=== PATIENT | male | born 1970 | race Caucasian/White ===

== ENCOUNTER 2020-07-22 10:04 | Outpatient (CLI) | payer BC, SELFPAY ==
[2020-07-26 17:42] LABS: Patient Race White; SARS-CoV-2 RNA Undetected (Undetected); SARS-CoV-2 Specimen Source Nasal
== END 2020-07-22 10:24 ==
PROVIDERS: PCP Nurse Practitioner Family; Visit Provider Nurse Practitioner Family
DX: R05 Cough (principal)
CPT/HCPCS: U0003

== ENCOUNTER 2020-09-13 02:18 | Outpatient (CLI) | payer BC, SELFPAY ==
[2020-09-13 09:25] LABS: Hemoglobin A1C 5.4 % (<5.7)
[2020-09-13 10:03] LABS: Calculated LDL 58 mg/dL (<100); Cholesterol 159 mg/dL (<200); HDL Cholesterol 37 mg/dL (40-60); Triglyceride 321 mg/dL (<150)
== END 2020-09-13 02:38 ==
PROVIDERS: PCP Nurse Practitioner Family; Visit Provider Nurse Practitioner Family
DX: Z13.220 Encounter for screening for lipoid disorders (principal); Z13.1 Encounter for screening for diabetes mellitus
CPT/HCPCS: 36415; 80061; 83036

== ENCOUNTER 2021-08-11 06:52 | Emergency (ER) | payer BC, SELFPAY ==
[2021-08-11 06:58] VITALS: BP 148/78; PULSE 90; RESP 16; TEMP 36.7; O2SAT 95
--- NOTE | 2021-08-11 07:00 | ED.GENADUL_ITS ---
Discharge Plan Disposition Patient Disposition: HOME Condition: Stable Discharge Details Clinical Impression: Avulsion fracture of right wrist Primary Care Provider: Bob So ED Provider: Chan Tariq Home Meds and New Rx's Prescriptions: Continued amlodipine 10 mg tablet 10 mg PO DAILY Qty: 90 RF: 4 triamcinolone acetonide 0.1 % cream 1 applic topical BID Qty: 30 RF: 0 hydrochlorothiazide 12.5 mg tablet 12.5 mg PO DAILY Qty: 90 RF: 0 Discharge Instructions Additional Instructions: Leave wrist immobilized, but may remove for bathing We will place a referral to the orthopedic clinic today. Please call tomorrow for an appointment time. The office #[phone] Elevate above level of heart to reduce pain and swelling. Continue ibuprofen 600 to 800 mg every 8 hours, with food, as needed for pain. Return to the emergency room for any acute concerns. Medical Decision Making <Marco Wilkinson MD - Last Filed: 08/11/21 07:04> 50 yo male comes in with right wrist pain for a day. He states he was playing fetch with his dog yesterday using a [employer]ckit device repeatedly and had discomfort in his right wrist since. HE denies falls or other trauma. He localizes the pain to the ulnar surface of the wrist. He has no visible or palapable deformities. He has no pain in the hand or fingers, normal sensation, normal pulses, full range of motion of the hand and wrist. I suspect sprain vs tendonitis from the repetitive movement but will xray to evaluate for fracture Differential Diagnosis Differential Diagnosis: tendonitis, sprain, strain <Chan Tariq MD - Last Filed: 08/11/21 07:50> Received signout from Dr. Wilkinson. Please see his note for initial details of the case. There is question of avulsion fracture adjacent to the pisiform, at the point of patient's tenderness. Placed in immobilization with removable splint and will have him follow-up with orthopedics. Given instructions for home management. Stable for discharge at this time. HPI <Marco Wilkinson MD - Last Filed: 08/11/21 07:04> General Mode of arrival: ambulatory . Date/Time Provider Initiated Documentation: 08/11/21 06:53 . Limitations to Documentation: no limitations . Information obtained by: patient . History of Present Illness 50 year old M presents to the emergency department with the chief complaint of right wrist pain, described as moderate, Quality is described as aching, and is localized to the right and upper extremity. Patient reports no radiation. Patient started experiencing this day(s) (1) and it has been constant. Rest improves symptom(s), Movement worsens symptoms . Patient notes no other symptoms.. Patient did receive the following treatments prior to arrival, none Related Data Home Medications Medication Instructions Recorded Confirmed amlodipine 10 mg tablet 10 mg PO DAILY #90 tab 12/28/20 08/11/21 triamcinolone acetonide 0.1 % 1 applic TOPICAL BID #30 g 04/13/21 04/13/21 topical cream hydrochlorothiazide 12.5 mg tablet 12.5 mg PO DAILY #90 tab 05/03/21 08/11/21 Previous Rx's Medication Instructions Recorded amlodipine 10 mg tablet 10 mg PO DAILY #90 tab 12/28/20 triamcinolone acetonide 0.1 % 1 applic TOPICAL BID #30 g 04/13/21 topical cream hydrochlorothiazide 12.5 mg tablet 12.5 mg PO DAILY #90 tab 05/03/21 Allergies Allergy/AdvReac Type Severity Reaction Status Date / Time lisinopril Allergy Unknown Verified 08/11/21 07:01 pseudoephedrine Allergy Unknown Verified 08/11/21 07:01 environmental AdvReac Mild Uncoded 08/11/21 07:01 Review of Systems <Marco Wilkinson MD - Last Filed: 08/11/21 07:04> All systems reviewed & are unremarkable except as noted in HPI and below Constitutional Constitutional: Denies chills, Denies fever(s) and Denies weakness Cardiovascular Cardiovascular: Denies chest pain and Denies dyspnea Respiratory Respiratory: Denies cough and Denies dyspnea Gastrointestinal Gastrointestinal: Denies abdominal pain, Denies nausea and Denies vomiting Musculoskeletal Musculoskeletal: Denies joint swelling Neurologic Neurologic: Denies weakness [facility] <Marco Wilkinson MD - Last Filed: 08/11/21 07:04> Active Problem List (Updated 08/11/21 @ 07:49 by Chan Tariq MD) Avulsion fracture of right wrist (Acute) Rash (Acute) Skin lesion (Acute) Right inguinal pain (Acute) GERD (gastroesophageal reflux disease) (Chronic) Diabetes mellitus screening (Acute) Screening cholesterol level (Acute) Adenomatous polyp (Acute ~2014) Chronic allergic conjunctivitis (Acute) Contact dermatitis (Acute) Essential hypertension (Acute) Right lower quadrant pain (Chronic) Pure hyperglyceridemia (Acute) Umbilical hernia (Acute) Medical History (Updated 08/11/21 @ 07:49 by Chan Tariq MD) Plantar nerve lesion Shoulder joint pain Sprain of knee/leg Family History (Updated 07/14/20 @ 14:24 by Carlos Moyer) Mother Asthma Breast cancer Hypertension Father Heart disease Hypertension Stroke Sister Hypertension Maternal Grandfather , age 46 Alcohol abuse Heart disease Paternal Grandfather , age 82 COPD (chronic obstructive pulmonary disease) Heart disease Hypertension Maternal Grandmother , age 85 Heart disease Hyperlipidemia Hypertension Paternal Grandmother , age 72 Hypertension Ovarian cancer Social History (Updated 07/14/20 @ 14:21 by Carlos Moyer) Smoking/Tobacco Use Status: Former Tobacco Use Quit Date: 09/23/14 Smokeless tobacco user: chewing tobacco and snuff Quit status: has quit before Second Hand Exposure: No Smoking risk assessment performed?: Yes Alcohol Intake: current Alcohol Intake frequency: a few times a month Drug use: Never Caregiver/Support person: No Household members: spouse and children Housing: house Communication Needs: None Do you need help understanding health information?: Never Pets and animals: Yes Pets and animals: dog(s) Sexually active: Yes Do you think of yourself as: straight/heterosexual Current gender identity: male What is your relationship status?: How often do you talk on the phone with friends or family?: never How often do you get together with friends or relatives?: never How often do you attend mandaeism or baptism services?: 1-3 times per year Do you belong to any clubs or organized social groups?: yes Panel score (0-1 are the most socially isolated patients): 2 What type of physical activity do you participate in: walking Duration: < 15 minutes/day Frequency: 3-4 times per week Rakel/Temple: Uatsdin Special rakel needs: No Seatbelt use: always Helmet use: Yes Helmet use: always Drive intox or ride w/intox courtesy van driver: No Do you feel safe at home: Yes Do you feel safe in your relationship?: No Victim of physical abuse: No Victim of emotional abuse: No Victim of sexual abuse: No Would you like helpful sources: No Exam <Marco Wilkinson MD - Last Filed: 08/11/21 07:04> Const General: no acute distress Orientation: alert HENMT Head: normal to inspection Ears: external ears normal General nose exam: external nose normal Mouth: moist mucous membranes Eyes General: appearance normal, both eyes and all related structures Neck Neck: normal visual inspection Resp Effort & Inspection: normal respiratory effort and able to speak in complete sentences Cardio Rate: regular rate Skin General skin exam: no rashes or lesions noted Neuro General: patient alert and patient oriented x3 Extrem General: normal to inspection Psych Mental Status: mental status grossly normal Sign Out <Marco Wilkinson MD - Last Filed: 08/11/21 07:04> Sign Out Data: Sign Out Comment: right wrist pain after playing fetch with dog yesterday and using chuckit, no falls, xray pending. If negative treat as sprain Last updated by Marco Wilkinson MD at 08/11/21 07:06
[2021-08-11] MEDS: Ibuprofen 600 MG TAB PO (07:07)
--- NOTE | 2021-08-11 07:16 | DI.RAD_ITS ---
Exam(s) XR WRIST RT COMPLETE EXAM: XR WRIST RT COMPLETE CLINICAL HISTORY: pain ulnar surface. TECHNIQUE: 2D digital imaging was performed. COMPARISON: No exams were available for comparison FINDINGS: BONES: There is a small bony density seen adjacent to the pisiform which could represent a fracture f ragment. No additional fracture suspected. No bony destructive lesion is seen. JOINTS: The carpal bones are normally aligned. SOFT TISSUE: Mild swelling. IMPRESSION: Fracture fragment adjacent to the pisiform. DATA REPOSITORY: RADIATION DOSE DELIVERED:
--- NOTE | 2021-08-11 07:39 | DI.VRAD_ITS ---
PROCEDURE INFORMATION: Exam: XR Right Wrist Exam date and time: 08/11/2021 7:00 AM Age: 50 years old Clinical indication: Wrist; Right; Patient HX: Pain ulnar surface TECHNIQUE: Imaging protocol: XR Right wrist. Views: 3 or more views. COMPARISON: No relevant prior studies available. FINDINGS: Bones/joints: Suspect small cortical avulsion volar wrist adjacent to the pisiform. Overlying soft tissue swelling. Minimal deformity ulnar styloid process without discrete displaced fracture. No other acute fracture or dislocation. 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 No erosions. No lytic or blastic lesions. Soft tissues: Soft tissue swelling ulnar/volar aspect of the wrist IMPRESSION: 1. Suspect small cortical avulsion volar wrist adjacent to the pisiform. Overlying soft tissue swelling. 2. No other acute fracture or dislocation Dictated and Authenticated by: Richmond Alfaro MD. Ordering:ALEXSANDRA Lara MD
== END 2021-08-11 07:58 | disposition home or self-care (01) ==
PROVIDERS: Emergency Provider Emergency Medicine; PCP Nurse Practitioner Family
DX: S62.101A Fracture of unspecified carpal bone, right wrist, initial encounter for closed fracture (principal); X50.3XXA Overexertion from repetitive movements, initial encounter
CPT/HCPCS: 29125; 99283; 73110

== ENCOUNTER 2021-09-17 12:09 | Emergency (ER) | payer BC, SELFPAY ==
[2021-09-17 12:20] VITALS: BP 133/92; PULSE 98; RESP 20; TEMP 36.9; O2SAT 98
[2021-09-17 12:22] VITALS: BP 133/92; PULSE 82; O2SAT 99
[2021-09-17 12:23] VITALS: O2SAT 99
--- NOTE | 2021-09-17 12:30 | DI.CT_ITS ---
Exam(s) CT CHEST/ABD/PEL W EXAM: CT CHEST/ABD/PEL W CLINICAL HISTORY: Ski trauma - Pain LUQ and Ribs. TECHNIQUE: Imaging Protocol: Axial computed tomography images with coronal and sagittal reformatted images were created and reviewed CONTRAST MATERIAL: Intravenous: Omnipaque 350 Contrast volume:100 ml Oral: None COMPARISON: No exams were available for comparison FINDINGS: CHEST: LUNGS: No evidence of lung contusion or pleural effusion. No pneumothorax. No incidental nodules. No infiltrates. No focal findings in the trachea and mainstem bronchi.. MEDIASTINUM: No evidence of mediastinal hematoma. No incidental adenopathy. Visualized thyroid unre markable. CARDIAC: Heart size is normal. There is no pericardial effusion.Caliber of the thoracic aorta is wit hin normal limits. OSSEOUS: No fractures. No significant osseous lesions.. ABDOMEN: There is no ascites. LIVER: There are no focal hepatic lesions nor dilatation of intrahepatic ducts. No evidence of hepat ic laceration. GALLBLADDER/BILIARY: No obvious gallbladder pathology. CBD is not dilated. PANCREAS: No evidence of pancreatic mass nor dilatation of the pancreatic duct. SPLEEN: Spleen size normal. No splenic laceration evident. No perisplenic fluid. Splenic and oscar l veins are patent. ADRENALS: There are no significant adrenal masses. KIDNEYS: No hepatic laceration or subcapsular hematoma. No focal findings in the right kidney. Tiny cyst noted in the left kidney measuring approximately 5 millimeters.. No solid renal masses no hydr onephrosis. ABDOMINAL AORTA: Intact. No laceration. No aneurysm. No periaortic fluid. LYMPH NODES: There is no retroperitoneal nor paraaortic adenopathy. ABDOMINAL WALL: Small fat containing umbilical hernia. There are bilateral fat containing inguinal h ernias. GI: There is no evidence of bowel obstruction.No evidence of bowel wall hematoma nor mesenteric hemat vivian. PELVIS: LYMPH NODES: There is no intrapelvic nor inguinal adenopathy. GI: No evidence of appendicitis.No evidence of sigmoid diverticulitis. URINARY BLADDER: No distension. No extravasation. No focal findings. REPRODUCTIVE: Prostate unremarkable. Seminal vesicles unremarkable. No free fluid in the pelvis OSSEOUS: No obvious fractures. No significant osseous lesions. IMPRESSION: 1. No evidence of significant trauma sequelae in the chest. No incidental intrathoracic findings 2. No significant trauma sequelae in the abdomen and pelvis. Study 1st read by [facility]. RADIATION DOSE DELIVERED: 1,345.92mGy.cm Total DLP DATA REPOSITORY: All CT scans at this facility are submitted to the National Radiology Data Registry (NRDR) Dose Index Registry (DIR) with the [employer] (ACR). RADIATION OPTIMIZATION: All CT scans at this facility use at least one of these dose optimization te chniques: automated exposure control; mA and/or kV adjustment per patient size (includes targeted exa ms where dose is matched to clinical indication); or iterative reconstruction.
[2021-09-17 12:45] LABS: Abs Immature Grans 0.03 10^3/uL (0.0-0.06); Absolute Basophil Count 0.03 10^3/uL (0.0-0.2); Absolute Eosinophil Count 0.12 10^3/uL (0.0-0.7); Absolute Lymphocyte Count 0.86 10^3/uL (1.2-3.4); Absolute Monocyte Count 0.52 10^3/uL (0.1-0.8); Absolute Neutrophil Count 7.74 10^3/uL (1.2-6.7); Basophils % 0.3; Eosinophils % 1.3; HCT 43.8 % (40.0-50.0); Immature Grans % 0.3; Lymphocytes % 9.2; MCH 29.6 pg (27.0-33.0); MCHC 34.2 % (32.0-36.0); MCV 86.6 fL (80-95); MPV 9.2 fL (8.0-11.0); Monocytes % 5.6; Neutrophils % 83.3; Nucleated RBC 0 %; Platelet Count 184 10^3/uL (130-400); RBC 5.06 10^6/uL (4.36-5.78); RDW-SD 40.4 fL
[2021-09-17] MEDS: Ketorolac 15 MG/ML VIAL IVP (12:46)
[2021-09-17 12:58] LABS: ALT 164 U/L (16-63); AST 65 U/L (15-37); Alkaline Phosphatase 84 U/L (46-116); Anion Gap 8.3 mmol/L (3-11); BUN 20 mg/dL (7-18); Bilirubin, Total 0.5 mg/dL (0.2-1.0); CO2 25.7 mmol/L (21.0-32.0); CREATININE 1.1 mg/dL (0.70-1.30); Calcium 8.9 mg/dL (8.5-10.1); Chloride 103 mmol/L (98-107); Glucose 119 mg/dL (74-106); Potassium 3.5 mmol/L (3.5-5.1); Sodium 137 mmol/L (136-145); Total Protein 7.4 g/dL (6.4-8.2)
[2021-09-17] MEDS: Omnipaque 350 MG/ML 100 ML BTL IJ (13:01)
[2021-09-17] MEDS: Normal Saline Flush 10 ML SYR IVP (13:02)
--- NOTE | 2021-09-17 13:11 | ED.GENADUL_ITS ---
Discharge Plan Disposition Patient Disposition: HOME Condition: Stable Discharge Details Clinical Impression: Acute traumatic injury of chest wall Primary Care Provider: Bob So ED Provider: Jorge Moe Home Meds and New Rx's Prescriptions: New cyclobenzaprine 5 mg tablet 5 mg PO TID PRN (Reason: muscle spasm) Qty: 14 RF: 0 Continued amlodipine 10 mg tablet 10 mg PO DAILY Qty: 90 RF: 4 triamcinolone acetonide 0.1 % cream 1 applic topical BID Qty: 30 RF: 0 losartan 100 mg tablet 100 mg PO DAILY RF: 0 hydrochlorothiazide 12.5 mg tablet 12.5 mg PO DAILY Qty: 90 RF: 0 Discharge Instructions Instructions: Chest Wall Pain (ED) Additional Instructions: If you develop fever chills, productive cough, or any significant worsening of your symptoms please return immediately to the emergency department for reassessment. Otherwise you may take gkli-qyw-sdqviiz pain medication as discussed for pain control and use topical lidocaine cream or patches if this is beneficial. If you are not showing signs of improvement in the next 1 to 2 weeks please follow-up with your primary care provider for consideration of repeat imaging as needed. Medical Decision Making Patient presenting to the emergency department for chief complaint of left-sided rib and upper abdominal pain after falling while skiing. Patient states he was helmeted and denies any head injury, loss of consciousness, back pain. Physical exam shows significantly tender left mid axillary ribs 6 through 8, left upper quadrant pain, otherwise patient has benign exam with no C-spine tenderness, full range of motion of neck, no thoracic or lumbar tenderness to palpation. Abdomen is soft with no bloating and normal active bowel sounds. Review of labs is unremarkable for any emergent findings but of notation is slightly elevated AST and ALT which patient states that he has planned follow-up with primary care provider discussed this and his elevated blood pressure. Review of CT imaging shows no acute rib fracture, no pneumo or hemothorax, no hematoma or abdominal findings. Radiologist does note a transverse process fracture of L4 which patient was reassessed and has no tenderness to palpation of the lumbar spine so at this time I feel this is an over read and I do not think patient has spinal fracture. Patient did report improvement after receiv ing Toradol and lidocaine patch but reported some muscular spasms to chest wall. Due to this patient was prescribed muscle relaxers but then discussed [id number]-[id number] pain management therapy which patient is agreeable to. Follow- up and return precautions were also discussed. After discussion of diagnosis and plan of care patient has no further needs, questions, or concerns and states clear understanding to return to the emergency department for any worsening symptoms. HPI General Mode of arrival: ambulatory . Date/Time Provider Initiated Documentation: 09/17/21 12:10 . Limitations to Documentation: no limitations . Information obtained by: patient . History of Present Illness 50 year old M presents to the emergency department with the chief complaint of Left rib and abd pain after ski fall, described as moderate, with intensity rated at 6. Quality is described as aching and sharp, and is localized to the chest, abdomen and left. Patient reports no radiation. Patient started experiencing this hour(s) (1) and it has been constant. Immobilization improves symptom(s), Movement worsens symptoms . Patient notes no other symptoms.. Patient did receive the following treatments prior to arrival, none Related Data Home Medications Medication Instructions Recorded Confirmed amlodipine 10 mg tablet 10 mg PO DAILY #90 tab 12/28/20 09/17/21 triamcinolone acetonide 0.1 % 1 applic TOPICAL BID #30 g 04/13/21 09/17/21 topical cream hydrochlorothiazide 12.5 mg tablet 12.5 mg PO DAILY #90 tab 05/03/21 09/17/21 losartan 100 mg tablet 100 mg PO DAILY 09/04/21 09/17/21 cyclobenzaprine 5 mg PO TID PRN #14 tab 09/17/21 Previous Rx's Medication Instructions Recorded amlodipine 10 mg tablet 10 mg PO DAILY #90 tab 12/28/20 triamcinolone acetonide 0.1 % 1 applic TOPICAL BID #30 g 04/13/21 topical cream hydrochlorothiazide 12.5 mg tablet 12.5 mg PO DAILY #90 tab 05/03/21 cyclobenzaprine 5 mg PO TID PRN #14 tab 09/17/21 Allergies Allergy/AdvReac Type Severity Reaction Status Date / Time lisinopril Allergy Unknown Verified 09/17/21 12:24 pseudoephedrine Allergy Unknown Verified 09/17/21 12:24 environmental AdvReac Mild Uncoded 09/17/21 12:24 General Stated Complaint: Trauma BUNNY: 2 Review of Systems ENT Ears, Nose, Mouth, and Throat: Denies neck pain Cardiovascular Cardiovascular: Denies syncope and Denies dyspnea Respiratory Respiratory: Denies cough and Denies dyspnea Gastrointestinal Gastrointestinal: Reports abdominal pain, Denies bloating, Denies nausea, Denies vomiting and Denies hematemesis Musculoskeletal Musculoskeletal: Reports as per HPI, Denies back pain, Denies neck pain, Denies numbness and Denies tingling Integumentary/Breasts Skin/Breast: Denies rash, Denies sores and Denies wounds Neurologic Neurologic: Denies syncope, Denies numbness and Denies tingling PFSH All Active Problems (Updated 09/17/21 @ 14:12 by Jorge Moe NP) Acute traumatic injury of chest wall (Acute) Avulsion fracture of right wrist (Acute 08/10/21) Rash (Acute) Skin lesion (Acute) Right inguinal pain (Acute) GERD (gastroesophageal reflux disease) (Chronic) Diabetes mellitus screening (Acute) Screening cholesterol level (Acute) Adenomatous polyp (Acute ~2013) Chronic allergic conjunctivitis (Acute) Contact dermatitis (Acute) Essential hypertension (Acute) Right lower quadrant pain (Chronic) Pure hyperglyceridemia (Acute) Umbilical hernia (Acute) Medical History Plantar nerve lesion Shoulder joint pain Sprain of knee/leg Family History Mother Asthma Breast cancer Hypertension Father Heart disease Hypertension Stroke Sister Hypertension Maternal Grandfather , age 46 Alcohol abuse Heart disease Paternal Grandfather , age 82 COPD (chronic obstructive pulmonary disease) Heart disease Hypertension Maternal Grandmother , age 85 Heart disease Hyperlipidemia Hypertension Paternal Grandmother , age 72 Hypertension Ovarian cancer Social History Smoking/Tobacco Use Status: Former Tobacco Use Quit Date: 09/23/14 Smokeless tobacco user: chewing tobacco and snuff Quit status: has quit before Second Hand Exposure: No Smoking risk assessment performed?: Yes Alcohol Intake: current Alcohol Intake frequency: a few times a month Drug use: Never Substance use type: does not use Caregiver/Support person: No Household members: spouse and children Housing: house Communication Needs: None Do you need help understanding health information?: Never Pets and animals: Yes Pets and animals: dog(s) Sexually active: Yes Do you think of yourself as: straight/heterosexual Current gender identity: male What is your relationship status?: How often do you talk on the phone with friends or family?: never How often do you get together with friends or relatives?: never How often do you attend jewish or bahai services?: 1-3 times per year Do you belong to any clubs or organized social groups?: yes Panel score (0-1 are the most socially isolated patients): 2 What type of physical activity do you participate in: walking Duration: < 15 minutes/day Frequency: 3-4 times per week Rakel/Jehovah'S Witness: Cheondoism Special rakel needs: No Seatbelt use: always Helmet use: Yes Helmet use: always Drive intox or ride w/intox school bus driver/mechanic: No Do you feel safe at home: Yes Do you feel safe in your relationship?: No Victim of physical abuse: No Victim of emotional abuse: No Victim of sexual abuse: No Would you like helpful sources: No Exam Const General: cooperative Orientation: alert, awake and oriented x3 Chest Chest: normal inspection of the chest, no crepitus, localized rib tenderness with anteroposterior compression (6-8 lateral left ribs), tenderness rib (Lateral L 6-8) and No rash Resp Effort & Inspection: normal respiratory effort and able to speak in complete sentences Auscultation: clear to auscultation bilaterally Cardio Rate: regular rate Rhythm: regular rhythm Heart Sounds: S1 normal and S2 normal GI Palpation: soft, no hepatosplenomegaly, not firm, no guarding, no masses, no pulsatile masses, not rigid, no splenomegaly and tender in the LUQ Auscultation: normal bowel sounds Back/Spine/Pelvis Back: no CVA tenderness Cervical Spine: normal cervical lordosis, cervical ROM normal and No cervical spinal tenderness Thoracic/Lumbar Spine: thoracic and lumbar spine normal to inspection, No thoracic spinal tenderness and No lumbar spinal tenderness Neuro General: patient alert, patient awake, patient oriented x3, gait normal and moves all extremities Course Vital Signs Vital signs: Vital Signs Temperature 36.9 C 09/17/21 12:20 Pulse 98 H 09/17/21 12:20 Respiratory Rate 20 09/17/21 12:20 Blood Pressure 133/92 H 09/17/21 12:20 Pulse Oximetry 98 09/17/21 12:20 Temperature 36.9 C 09/17/21 12:20 Temperature Source Temporal Artery Scan 09/17/21 12:20 Pulse 82 09/17/21 12:22 Respiratory Rate 20 09/17/21 12:20 Respiratory Effort Non-Labored 09/17/21 12:47 Respiratory Depth Normal 09/17/21 12:47 Respiratory Pattern Normal 09/17/21 12:47 Blood Pressure 133/92 H 09/17/21 12:22 Blood Pressure Mean 104 09/17/21 12:22 Blood Pressure Position Supine 09/17/21 12:20 Pulse Oximetry 99 09/17/21 12:23 Oxygen Delivery Method Room Air 09/17/21 12:20 Oxygen Flow Rate 0 09/17/21 12:20 Pain Level 4 09/17/21 12:20 Lab/Test Results Lab/Test Results: Laboratory Tests Range/Units 09/17/21 12:40 WBC (4.4-10.8) 10^3/uL 9.30 RBC (4.36-5.78) 10^6/uL 5.06 Hgb (13.5-17.5) g/dL 15.0 Hct (40.0-50.0) % 43.8 MCV (80-95) fL 86.6 MCH (27.0-33.0) pg 29.6 MCHC (32.0-36.0) % 34.2 RDW (11.8-14.1) % 13.0 Plt Count (130-400) 10^3/uL 184 MPV (8.0-11.0) fL 9.2 Immature Gran % 0.3 Neutrophils % 83.3 Lymphocytes % 9.2 Monocytes % 5.6 Eosinophils % 1.3 Basophils % 0.3 Nucleated RBC % % 0 Absolute Neutrophils (1.2-6.7) 10^3/uL 7.74 H Absolute Lymphocytes (1.2-3.4) 10^3/uL 0.86 L Absolute Monocytes (0.1-0.8) 10^3/uL 0.52 Absolute Eosinophils (0.0-0.7) 10^3/uL 0.12 Absolute Basophils (0.0-0.2) 10^3/uL 0.03 PAWSS Have you Been Recently Intoxicated or Drunk Within the Last 30 days?: No Have you Ever Experienced Previous Episodes of Alcohol Withdrawal?: No Have you ever Experienced Withdrawal Seizures?: No Have you ever Experienced Delirium Tremens(DT)s?: No Have you ever undergone Alcohol Rehabilitation Treatment (i.e, inpt ot outpatient treatment programs)?: No Have you ever Experienced Blackouts?: No Have you ever Combined Alcohol with other Downers within the last 90 days?: No Have you ever Combined Alcohol with any other Substance of Abuse during the last 90 days?: No Positive Blood Alcohol level on Presentation? [PCS.BAL]: No Evidence of Increased Autonomic Activity (i.e. HR>120, tremor, sweating, agitation, nausea)?: No Result: 0
[2021-09-17] MEDS: Lidocaine 5% Patch 1 PATCH TP (13:33)
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
[2021-09-17 14:32] VITALS: BP 142/76; PULSE 92; RESP 18; O2SAT 98
== END 2021-09-17 14:33 | disposition home or self-care (01) ==
PROVIDERS: Emergency Provider Nurse Practitioner Family; PCP Nurse Practitioner Family
DX: S29.8XXA Other specified injuries of thorax, initial encounter (principal); R10.12 Left upper quadrant pain; V00.321A Fall from snow-skis, initial encounter; I10 Essential (primary) hypertension; R79.89 Other specified abnormal findings of blood chemistry
CPT/HCPCS: 36415; 74177; 80053; 96374; 99285; 71260; 85025; 99284; J1885; J3490

== ENCOUNTER 2021-10-17 03:11 | Outpatient (CLI) | payer BC, SELFPAY ==
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
== END 2021-10-17 03:31 ==
PROVIDERS: PCP Nurse Practitioner Family; Visit Provider Nurse Practitioner Family
DX: R07.81 Pleurodynia (principal); S20.212D Contusion of left front wall of thorax, subsequent encounter; V00.321D Fall from snow-skis, subsequent encounter
CPT/HCPCS: 71046; 71100

== ENCOUNTER 2021-12-07 03:55 | Outpatient (CLI) | payer BC, SELFPAY ==
[2021-12-07 12:44] LABS: HCT 43.7 % (40.0-50.0); HGB 14.8 g/dL (13.5-17.5); MCH 29.5 pg (27.0-33.0); MCHC 33.9 % (32.0-36.0); MCV 87.2 fL (80-95); MPV 9.9 fL (8.0-11.0); Platelet Count 153 10^3/uL (130-400); RBC 5.01 10^6/uL (4.36-5.78); WBC 7.13 10^3/uL (4.4-10.8)
[2021-12-07 13:54] LABS: AST 606 U/L (15-37); Albumin 3.6 g/dL (3.4-5.0); Alkaline Phosphatase 158 U/L (46-116); Anion Gap 7.3 mmol/L (3-11); BUN 25 mg/dL (7-18); Bilirubin, Total 3.5 mg/dL (0.2-1.0); CO2 27.7 mmol/L (21.0-32.0); CREATININE 1.7 mg/dL (0.70-1.30); Calcium 8.7 mg/dL (8.5-10.1); Chloride 108 mmol/L (98-107); Estimated GFR 42.88 (mL/min/1.73m2); Glucose 94 mg/dL (74-106); Potassium 3.6 mmol/L (3.5-5.1); Sodium 143 mmol/L (136-145); TSH 0.73 uIU/mL (0.36-3.74); Total Protein 6.8 g/dL (6.4-8.2)
[2021-12-07 14:59] LABS: ALT 1505 U/L (16-63)
[2021-12-07 19:18] LABS: Lab Add On Test DONE
[2021-12-07 19:48] LABS: Lipase 146 U/L (73-393)
[2021-12-07 20:15] LABS: Ferritin 503 ng/mL (26-388)
== END 2021-12-07 03:56 | disposition home or self-care (01) ==
LOC: LBO 03:55
PROVIDERS: PCP Nurse Practitioner Family; Visit Provider Nurse Practitioner Family
DX: I10 Essential (primary) hypertension (principal); R53.83 Other fatigue; R42 Dizziness and giddiness; K21.9 Gastro-esophageal reflux disease without esophagitis
CPT/HCPCS: 36415; 80053; 83690; 85027; 82728; 84443

== ENCOUNTER 2021-12-08 20:56 | Outpatient (CLI) | payer BC, SELFPAY ==
--- NOTE | 2021-12-08 11:15 | DI.CT_ITS ---
Exam(s) CT ABDOMEN W EXAM: CT ABDOMEN W CLINICAL HISTORY: Significant elevation in liver enzymes, acute viral hepatitis TECHNIQUE: COMPARISON: CT CT CHEST/ABD/PEL W from 09/17/2021 FINDINGS: CT examination of the upper abdomen was performed utilizing arterial and venous phase imaging with in travenous infusion of 100 cc of Omnipaque 350. Images obtained through the lung bases are unremarkable. There is a small pericholecystic fluid collection. Gallbladder is contracted. No biliary dilatation . Pancreas appears normal. Hepatic parenchyma is heterogeneous in attenuation. There is a nodular contour of the liver. The fi ndings are consistent with cirrhosis and hepatic steatosis. Spleen is mildly enlarged. No gross upp er abdominal venous collateral circulation identified. Normal opacification of portal vein. No adenopathy in the upper abdomen. Adrenals and kidneys appear normal. Abdominal aorta and major v isceral branches visualized appear intact. No focal bowel pathology. Normal appendix. IMPRESSION: The appearance is consistent with hepatic cirrhosis and probable hepatic steatosis. No focal hepatic lesion identified. No evidence of biliary tract obstruction. RADIATION DOSE DELIVERED: 1,024.32mGy.cm Total DLP !Error CTDIvol RADIATION OPTIMIZATION: All CT scans at this facility use at least one of these dose optimization te chniques: automated exposure control; mA and/or kV adjustment per patient size (includes targeted exa ms where dose is matched to clinical indication); or iterative reconstruction.
[2021-12-08] MEDS: Omnipaque 350 MG/ML 50 ML BTL IJ (15:13)
[2021-12-08] MEDS: Breeza Beverage 473 ML BTL PO (15:13)
[2021-12-08] MEDS: Omnipaque 350 MG/ML 100 ML BTL IJ (16:12)
[2021-12-08] MEDS: Normal Saline Flush 10 ML SYR IVP (16:13)
[2021-12-11 10:55] LABS: Hepatitis A Antibody IgM Negative (Negative); Hepatitis B Core Antibody Negative (Negative); Hepatitis B surface Ag Negative (Negative); Hepatitis C Ab w Rflx HCV PCR Negative (Negative)
== END 2021-12-08 21:16 ==
PROVIDERS: PCP Nurse Practitioner Family; Visit Provider Nurse Practitioner Family
DX: B17.9 Acute viral hepatitis, unspecified (principal); K74.60 Unspecified cirrhosis of liver
CPT/HCPCS: 86704; 86709; 86803; 87340; 74160; J3490; Q9967

== ENCOUNTER 2021-12-12 02:40 | Outpatient (CLI) | payer BC, SELFPAY ==
[2021-12-12 11:11] LABS: INR 1.3 (0.9-1.1); Prothrombin Time 12.6 sec (9.3-11.0)
[2021-12-12 12:08] LABS: AST 451 U/L (15-37); Albumin 3.4 g/dL (3.4-5.0); Alkaline Phosphatase 172 U/L (46-116); Anion Gap 7.2 mmol/L (3-11); BUN 18 mg/dL (7-18); Bilirubin, Total 2.7 mg/dL (0.2-1.0); CO2 27.8 mmol/L (21.0-32.0); CREATININE 1.5 mg/dL (0.70-1.30); Calcium 8.9 mg/dL (8.5-10.1); Chloride 103 mmol/L (98-107); Estimated GFR 49.54 (mL/min/1.73m2); Glucose 96 mg/dL (74-106); Potassium 3.5 mmol/L (3.5-5.1); Sodium 138 mmol/L (136-145); Total Protein 6.9 g/dL (6.4-8.2)
[2021-12-12 12:09] LABS: Ferritin > 2000 ng/mL (26-388)
[2021-12-12 12:20] LABS: ALT 1093 U/L (16-63)
[2021-12-12 12:53] LABS: Lab Add On Test DONE
[2021-12-13 09:10] LABS: Hepatitis C Ab w Rflx HCV PCR Negative (Negative)
[2021-12-13 11:27] LABS: Lyme Ab w Rflx to Lyme Confirm Negative (Negative)
[2021-12-13 11:28] LABS: CMV IgG Antibody Negative (See Note)
[2021-12-13 14:15] LABS: ANA Interpretation Positive (Negative); ANA Titer Pattern 1:80 Speckled
[2021-12-14 16:10] LABS: HBV DNA Detect/Quant, PCR Undetected IU/mL (Undetected)
[2021-12-14 16:15] LABS: Smooth Muscle Ab Screen Negative (Negative)
[2021-12-15 23:19] LABS: Anaplasma phagocytophilum Negative (Negative); B. miyamotoi PCR Negative (Negative); Babesia divergens/MO-1 Negative (Negative); Babesia duncani Negative (Negative); Babesia microti Negative (Negative); Ehrlichia chaffeensis Negative (Negative); Ehrlichia ewingii/canis Negative (Negative); Ehrlichia muris eauclairensis Negative (Negative)
== END 2021-12-12 02:41 | disposition home or self-care (01) ==
LOC: LBO 02:41
PROVIDERS: PCP Nurse Practitioner Family; Visit Provider Nurse Practitioner Family
DX: R53.83 Other fatigue (principal); R74.8 Abnormal levels of other serum enzymes; B17.9 Acute viral hepatitis, unspecified
CPT/HCPCS: 36415; 80053; 86803; 87517; 87798; 82728; 85610; 86038; 86255; 86618; 86644

== ENCOUNTER 2021-12-18 03:39 | Outpatient (CLI) | payer BC, SELFPAY ==
[2021-12-18 14:25] LABS: INR 1.3 (0.9-1.1); Prothrombin Time 12.7 sec (9.3-11.0)
[2021-12-18 15:31] LABS: ALT 916 U/L (16-63); AST 445 U/L (15-37); Albumin 3.5 g/dL (3.4-5.0); Alkaline Phosphatase 170 U/L (46-116); Anion Gap 10.2 mmol/L (3-11); BUN 17 mg/dL (7-18); Bilirubin, Total 2.3 mg/dL (0.2-1.0); CO2 24.8 mmol/L (21.0-32.0); CREATININE 1.3 mg/dL (0.70-1.30); Calcium 8.8 mg/dL (8.5-10.1); Chloride 105 mmol/L (98-107); Estimated GFR 58.43 (mL/min/1.73m2); Glucose 93 mg/dL (74-106); Potassium 3.6 mmol/L (3.5-5.1); Sodium 140 mmol/L (136-145); Total Protein 6.9 g/dL (6.4-8.2)
== END 2021-12-18 03:40 | disposition home or self-care (01) ==
LOC: LBO 03:39
PROVIDERS: PCP Nurse Practitioner Family; Visit Provider Nurse Practitioner Family
DX: R53.83 Other fatigue (principal); R74.8 Abnormal levels of other serum enzymes; K74.60 Unspecified cirrhosis of liver; B17.9 Acute viral hepatitis, unspecified
CPT/HCPCS: 36415; 80053; 85610

== ENCOUNTER 2021-12-26 04:42 | Outpatient (CLI) | payer BC, SELFPAY ==
[2021-12-26 14:35] LABS: INR 1.3 (0.9-1.1); Prothrombin Time 13.1 sec (9.3-11.0)
[2021-12-26 15:22] LABS: AST 540 U/L (15-37); Albumin 3.4 g/dL (3.4-5.0); Alkaline Phosphatase 150 U/L (46-116); Bilirubin, Direct 1.3 mg/dL (0.0-0.2); Bilirubin, Total 2.7 mg/dL (0.2-1.0); Total Protein 6.8 g/dL (6.4-8.2)
[2021-12-26 15:36] LABS: ALT 1054 U/L (16-63)
== END 2021-12-26 04:43 | disposition home or self-care (01) ==
LOC: LBO 04:42
PROVIDERS: PCP Nurse Practitioner Family; Visit Provider Internal Medicine Gastroenterology
DX: R79.89 Other specified abnormal findings of blood chemistry (principal); R74.8 Abnormal levels of other serum enzymes
CPT/HCPCS: 36415; 80076; 85610

== ENCOUNTER 2022-01-10 03:00 | Outpatient (CLI) | payer BC, SELFPAY ==
[2022-01-10 11:03] LABS: INR 1.4 (0.9-1.1); Prothrombin Time 13.7 sec (9.3-11.0)
[2022-01-10 11:50] LABS: ALT 424 U/L (16-63); AST 143 U/L (15-37); Alkaline Phosphatase 174 U/L (46-116); Bilirubin, Total 2.4 mg/dL (0.2-1.0); Total Protein 6.3 g/dL (6.4-8.2)
[2022-01-10 12:02] LABS: Bilirubin, Direct 1.2 mg/dL (0.0-0.2)
[2022-01-22 17:03] LABS: 6-Methylmercaptopurine ribosid 5.21 nmol/mL/h (5.04-9.57)
== END 2022-01-10 03:01 | disposition home or self-care (01) ==
LOC: LBO 03:00
PROVIDERS: PCP Nurse Practitioner Family; Visit Provider Internal Medicine Gastroenterology
DX: K75.4 Autoimmune hepatitis (principal); R79.89 Other specified abnormal findings of blood chemistry
CPT/HCPCS: 36415; 80076; 82657; 85610

== ENCOUNTER 2022-01-16 05:13 | Outpatient (CLI) | payer BC, SELFPAY ==
[2022-01-16 12:48] LABS: ALT 285 U/L (16-63); AST 105 U/L (15-37); Albumin 3.1 g/dL (3.4-5.0); Alkaline Phosphatase 154 U/L (46-116); Bilirubin, Direct 1.1 mg/dL (0.0-0.2); Bilirubin, Total 2.8 mg/dL (0.2-1.0); Total Protein 6.3 g/dL (6.4-8.2)
[2022-01-16 13:03] LABS: INR 1.2 (0.9-1.1); Prothrombin Time 12.1 sec (9.3-11.0)
== END 2022-01-16 05:14 | disposition home or self-care (01) ==
LOC: LOS 05:14
PROVIDERS: PCP Nurse Practitioner Family; Visit Provider Internal Medicine Gastroenterology
DX: K75.4 Autoimmune hepatitis (principal)
CPT/HCPCS: 36415; 80076; 85610

== ENCOUNTER 2022-01-29 01:25 | Outpatient (CLI) | payer BC, SELFPAY ==
[2022-01-29 13:01] LABS: INR 1.2 (0.9-1.1); Prothrombin Time 11.6 sec (9.3-11.0)
[2022-01-29 13:27] LABS: ALT 142 U/L (16-63); AST 62 U/L (15-37); Albumin 3.2 g/dL (3.4-5.0); Alkaline Phosphatase 132 U/L (46-116); Bilirubin, Direct 0.8 mg/dL (0.0-0.2); Bilirubin, Total 1.8 mg/dL (0.2-1.0); Total Protein 6.4 g/dL (6.4-8.2)
== END 2022-01-29 01:26 | disposition home or self-care (01) ==
LOC: LOS 01:25
PROVIDERS: PCP Nurse Practitioner Family; Visit Provider Internal Medicine Gastroenterology
DX: K75.4 Autoimmune hepatitis (principal)
CPT/HCPCS: 36415; 80076; 85610

== ENCOUNTER 2022-02-06 02:08 | Outpatient (CLI) | payer BC, SELFPAY ==
[2022-02-06 12:44] LABS: Abs Immature Grans 0.05 10^3/uL (0.0-0.06); Absolute Basophil Count 0.02 10^3/uL (0.0-0.2); Absolute Eosinophil Count 0.05 10^3/uL (0.0-0.7); Absolute Lymphocyte Count 1.04 10^3/uL (1.2-3.4); Absolute Monocyte Count 0.91 10^3/uL (0.1-0.8); Absolute Neutrophil Count 7.26 10^3/uL (1.2-6.7); Basophils % 0.2; Eosinophils % 0.5; HCT 45.1 % (40.0-50.0); HGB 15.1 g/dL (13.5-17.5); Immature Grans % 0.5; Lymphocytes % 11.1; MCH 31.6 pg (27.0-33.0); MCHC 33.5 % (32.0-36.0); MCV 94 fL (80-95); MPV 10.4 fL (8.0-11.0); Monocytes % 9.8; Neutrophils % 77.9; Platelet Count 160 10^3/uL (130-400); RBC 4.78 10^6/uL (4.36-5.78); RDW-SD 52.6 fL; WBC 9.33 10^3/uL (4.4-10.8)
[2022-02-06 12:54] LABS: INR 1.1 (0.9-1.1); Prothrombin Time 11.1 sec (9.3-11.0)
[2022-02-06 13:02] LABS: ALT 135 U/L (16-63); AST 58 U/L (15-37); Albumin 3.3 g/dL (3.4-5.0); Alkaline Phosphatase 126 U/L (46-116); Bilirubin, Direct 0.7 mg/dL (0.0-0.2); Bilirubin, Total 1.7 mg/dL (0.2-1.0); Total Protein 6.5 g/dL (6.4-8.2)
== END 2022-02-06 02:09 | disposition home or self-care (01) ==
LOC: LOS 02:08
PROVIDERS: PCP Nurse Practitioner Family; Visit Provider Internal Medicine Gastroenterology
DX: K75.4 Autoimmune hepatitis (principal)
CPT/HCPCS: 36415; 80076; 85025; 85610

== ENCOUNTER 2022-02-13 03:17 | Outpatient (CLI) | payer BC, SELFPAY ==
[2022-02-13 13:11] LABS: ALT 133 U/L (16-63); AST 60 U/L (15-37); Albumin 3.1 g/dL (3.4-5.0); Alkaline Phosphatase 125 U/L (46-116); Bilirubin, Direct 0.6 mg/dL (0.0-0.2); Bilirubin, Total 1.4 mg/dL (0.2-1.0); Total Protein 6.2 g/dL (6.4-8.2)
== END 2022-02-13 03:18 | disposition home or self-care (01) ==
LOC: LOS 03:17
PROVIDERS: PCP Nurse Practitioner Family; Visit Provider Internal Medicine Gastroenterology
DX: K75.4 Autoimmune hepatitis (principal); R79.89 Other specified abnormal findings of blood chemistry
CPT/HCPCS: 36415; 80076

== ENCOUNTER 2022-02-21 03:53 | Outpatient (CLI) | payer BC, SELFPAY ==
[2022-02-21 13:50] LABS: ALT 131 U/L (16-63); AST 58 U/L (15-37); Albumin 3.1 g/dL (3.4-5.0); Alkaline Phosphatase 143 U/L (46-116); Bilirubin, Direct 0.4 mg/dL (0.0-0.2); Bilirubin, Total 0.9 mg/dL (0.2-1.0); Total Protein 6.2 g/dL (6.4-8.2)
== END 2022-02-21 03:54 | disposition home or self-care (01) ==
LOC: LOS 03:53
PROVIDERS: PCP Nurse Practitioner Family; Visit Provider Internal Medicine Gastroenterology
DX: K75.4 Autoimmune hepatitis (principal); R79.89 Other specified abnormal findings of blood chemistry
CPT/HCPCS: 36415; 80076

== ENCOUNTER 2022-03-07 02:14 | Outpatient (CLI) | payer BC, SELFPAY ==
[2022-03-07 13:05] LABS: ALT 101 U/L (16-63); AST 53 U/L (15-37); Albumin 3.2 g/dL (3.4-5.0); Alkaline Phosphatase 112 U/L (46-116); Bilirubin, Direct 0.3 mg/dL (0.0-0.2); Bilirubin, Total 1.1 mg/dL (0.2-1.0); Total Protein 6.6 g/dL (6.4-8.2)
== END 2022-03-07 02:15 | disposition home or self-care (01) ==
LOC: LOS 02:14
PROVIDERS: PCP Nurse Practitioner Family; Visit Provider Internal Medicine Gastroenterology
DX: K75.4 Autoimmune hepatitis (principal); R79.89 Other specified abnormal findings of blood chemistry
CPT/HCPCS: 36415; 80076

== ENCOUNTER 2022-03-21 01:49 | Outpatient (CLI) | payer BC, SELFPAY ==
[2022-03-21 12:49] LABS: ALT 100 U/L (16-63); AST 56 U/L (15-37); Albumin 3.3 g/dL (3.4-5.0); Alkaline Phosphatase 117 U/L (46-116); Bilirubin, Direct 0.3 mg/dL (0.0-0.2); Bilirubin, Total 0.9 mg/dL (0.2-1.0); Total Protein 6.7 g/dL (6.4-8.2)
== END 2022-03-21 01:50 | disposition home or self-care (01) ==
LOC: LOS 01:50
PROVIDERS: PCP Nurse Practitioner Family; Visit Provider Internal Medicine Gastroenterology
DX: K75.4 Autoimmune hepatitis (principal); R79.89 Other specified abnormal findings of blood chemistry
CPT/HCPCS: 36415; 80076

== ENCOUNTER 2022-04-03 03:01 | Outpatient (CLI) | payer BC, SELFPAY ==
[2022-04-03 12:55] LABS: ALT 67 U/L (16-63); AST 37 U/L (15-37); Albumin 3.2 g/dL (3.4-5.0); Alkaline Phosphatase 107 U/L (46-116); Bilirubin, Direct 0.2 mg/dL (0.0-0.2); Bilirubin, Total 0.8 mg/dL (0.2-1.0); Total Protein 6.7 g/dL (6.4-8.2)
== END 2022-04-03 03:02 | disposition home or self-care (01) ==
LOC: LOS 03:02
PROVIDERS: PCP Nurse Practitioner Family; Visit Provider Internal Medicine Gastroenterology
DX: K75.4 Autoimmune hepatitis (principal); R79.89 Other specified abnormal findings of blood chemistry
CPT/HCPCS: 36415; 80076

== ENCOUNTER 2022-04-24 03:16 | Outpatient (CLI) | payer BC, SELFPAY ==
[2022-04-24 13:06] LABS: ALT 47 U/L (16-63); AST 28 U/L (15-37); Albumin 3.5 g/dL (3.4-5.0); Alkaline Phosphatase 85 U/L (46-116); Bilirubin, Direct 0.3 mg/dL (0.0-0.2); Bilirubin, Total 1.1 mg/dL (0.2-1.0); Total Protein 6.5 g/dL (6.4-8.2)
== END 2022-04-24 03:17 | disposition home or self-care (01) ==
LOC: LOS 03:16
PROVIDERS: PCP Nurse Practitioner Family; Visit Provider Internal Medicine Gastroenterology
DX: K75.4 Autoimmune hepatitis (principal); R79.89 Other specified abnormal findings of blood chemistry
CPT/HCPCS: 36415; 80076

== ENCOUNTER 2022-05-22 03:18 | Outpatient (CLI) | payer BC, SELFPAY ==
[2022-05-22 13:01] LABS: ALT 36 U/L (16-63); AST 29 U/L (15-37); Albumin 3.5 g/dL (3.4-5.0); Alkaline Phosphatase 63 U/L (46-116); Bilirubin, Direct 0.1 mg/dL (0.0-0.2); Bilirubin, Total 0.6 mg/dL (0.2-1.0); Total Protein 6.6 g/dL (6.4-8.2)
== END 2022-05-22 03:19 | disposition home or self-care (01) ==
LOC: LOS 03:19
PROVIDERS: PCP Nurse Practitioner Family; Visit Provider Internal Medicine Gastroenterology
DX: K75.4 Autoimmune hepatitis (principal)
CPT/HCPCS: 36415; 80076

== ENCOUNTER 2022-07-03 02:59 | Outpatient (CLI) | payer BC, SELFPAY ==
[2022-07-03 12:38] LABS: ALT 35 U/L (16-63); AST 25 U/L (15-37); Albumin 3.7 g/dL (3.4-5.0); Alkaline Phosphatase 83 U/L (46-116); Bilirubin, Direct 0.1 mg/dL (0.0-0.2); Bilirubin, Total 0.7 mg/dL (0.2-1.0)
== END 2022-07-03 03:00 | disposition home or self-care (01) ==
LOC: LOS 02:59
PROVIDERS: PCP Nurse Practitioner Family; Visit Provider Internal Medicine Gastroenterology
DX: K75.4 Autoimmune hepatitis (principal); R79.89 Other specified abnormal findings of blood chemistry
CPT/HCPCS: 36415; 80076

== ENCOUNTER 2022-08-28 03:40 | Outpatient (CLI) | payer BC, SELFPAY ==
[2022-08-28 12:50] LABS: ALT 29 U/L (16-63); AST 26 U/L (15-37); Albumin 3.9 g/dL (3.4-5.0); Alkaline Phosphatase 75 U/L (46-116); BUN 23 mg/dL (7-18); Bilirubin, Direct 0.1 mg/dL (0.0-0.2); Bilirubin, Total 0.7 mg/dL (0.2-1.0); CREATININE 1.1 mg/dL (0.70-1.30); Calcium 9.4 mg/dL (8.5-10.1); Chloride 106 mmol/L (98-107); Estimated GFR 81.78 (mL/min/1.73m2); Glucose 121 mg/dL (74-106); Potassium 3.7 mmol/L (3.5-5.1); Sodium 142 mmol/L (136-145); Total Protein 7.2 g/dL (6.4-8.2)
== END 2022-08-28 03:41 | disposition home or self-care (01) ==
LOC: LOS 03:41
PROVIDERS: PCP Nurse Practitioner Family; Visit Provider Internal Medicine Gastroenterology
DX: R79.89 Other specified abnormal findings of blood chemistry (principal); K75.4 Autoimmune hepatitis
CPT/HCPCS: 36415; 80053; 80076

== ENCOUNTER 2022-10-08 02:58 | Outpatient (CLI) | payer BC, SELFPAY ==
[2022-10-08 12:26] LABS: ALT 25 U/L (16-63); AST 27 U/L (15-37); Alkaline Phosphatase 85 U/L (46-116); Bilirubin, Direct 0.1 mg/dL (0.0-0.2); Bilirubin, Total 0.8 mg/dL (0.2-1.0); Total Protein 7.4 g/dL (6.4-8.2)
== END 2022-10-08 02:59 | disposition home or self-care (01) ==
LOC: LOS 02:58
PROVIDERS: PCP Nurse Practitioner Family; Visit Provider Internal Medicine Gastroenterology
DX: R79.89 Other specified abnormal findings of blood chemistry (principal); K75.4 Autoimmune hepatitis
CPT/HCPCS: 36415; 80076

== ENCOUNTER 2022-11-15 03:02 | Outpatient (CLI) | payer BC, SELFPAY ==
[2022-11-15 12:53] LABS: ALT 26 U/L (16-63); AST 20 U/L (15-37); Albumin 3.8 g/dL (3.4-5.0); Alkaline Phosphatase 99 U/L (46-116); BUN 21 mg/dL (7-18); Bilirubin, Direct 0.1 mg/dL (0.0-0.2); Bilirubin, Total 0.6 mg/dL (0.2-1.0); CREATININE 1.1 mg/dL (0.70-1.30); Calcium 9.5 mg/dL (8.5-10.1); Chloride 105 mmol/L (98-107); Estimated GFR 81.28 (mL/min/1.73m2); Glucose 147 mg/dL (74-106); Potassium 3.7 mmol/L (3.5-5.1); Sodium 141 mmol/L (136-145); Total Protein 7.1 g/dL (6.4-8.2)
== END 2022-11-15 03:03 | disposition home or self-care (01) ==
PROVIDERS: PCP Nurse Practitioner Family; Visit Provider Student in an Organized Health Care Education/Training Program
DX: K75.4 Autoimmune hepatitis (principal); R79.89 Other specified abnormal findings of blood chemistry
CPT/HCPCS: 36415; 80053; 82248

== ENCOUNTER 2023-01-04 01:18 | Outpatient (CLI) | payer BC, SELFPAY ==
[2023-01-04 12:38] LABS: Calculated LDL 102 mg/dL (<100); Cholesterol 174 mg/dL (<200); HDL Cholesterol 43 mg/dL (40-60); Triglyceride 147 mg/dL (<150)
[2023-01-04 12:42] LABS: Hemoglobin A1C 5.8 % (<5.7)
== END 2023-01-04 01:19 | disposition home or self-care (01) ==
LOC: LOS 01:18
PROVIDERS: PCP Nurse Practitioner Family; Visit Provider Nurse Practitioner Family
DX: E78.1 Pure hyperglyceridemia (principal); Z13.1 Encounter for screening for diabetes mellitus
CPT/HCPCS: 36415; 80061; 83036

== ENCOUNTER 2023-06-03 01:57 | Outpatient (CLI) | payer BC, SELFPAY ==
[2023-06-03 12:18] LABS: Abs Immature Grans 0.02 10^3/uL (0.0-0.06); Absolute Basophil Count 0.03 10^3/uL (0.0-0.2); Absolute Eosinophil Count 0.08 10^3/uL (0.0-0.7); Absolute Lymphocyte Count 0.62 10^3/uL (1.2-3.4); Absolute Monocyte Count 0.47 10^3/uL (0.1-0.8); Absolute Neutrophil Count 4.21 10^3/uL (1.2-6.7); Basophils % 0.6; Eosinophils % 1.5; HCT 44.6 % (40.0-50.0); HGB 15.3 g/dL (13.5-17.5); Immature Grans % 0.4; Lymphocytes % 11.4; MCH 30.2 pg (27.0-33.0); MCHC 34.3 % (32.0-36.0); MCV 88 fL (80-95); Monocytes % 8.7; Neutrophils % 77.4; Platelet Count 171 10^3/uL (130-400); RBC 5.06 10^6/uL (4.36-5.78); RDW 13.7 % (11.8-14.1); RDW-SD 44.4 fL; WBC 5.43 10^3/uL (4.4-10.8)
[2023-06-03 13:24] LABS: ALT 26 U/L (16-63); AST 23 U/L (15-37); Alkaline Phosphatase 99 U/L (46-116); Anion Gap 6.1 mmol/L (3-11); BUN 17 mg/dL (7-18); Bilirubin, Total 0.8 mg/dL (0.2-1.0); CO2 29.9 mmol/L (21.0-32.0); CREATININE 1.1 mg/dL (0.70-1.30); Calcium 9.5 mg/dL (8.5-10.1); Chloride 103 mmol/L (98-107); Estimated GFR 81.28 (mL/min/1.73m2); Glucose 110 mg/dL (74-106); Potassium 4.4 mmol/L (3.5-5.1); Sodium 139 mmol/L (136-145); Total Protein 7.4 g/dL (6.4-8.2)
== END 2023-06-03 01:58 | disposition home or self-care (01) ==
LOC: LOS 01:57
PROVIDERS: PCP Nurse Practitioner Family; Visit Provider Student in an Organized Health Care Education/Training Program
DX: I10 Essential (primary) hypertension (principal)
CPT/HCPCS: 36415; 80053; 85025

== ENCOUNTER 2023-07-22 03:28 | Outpatient (CLI) | payer BC, SELFPAY ==
[2023-07-22 12:31] LABS: Abs Immature Grans 0.02 10^3/uL (0.0-0.06); Absolute Basophil Count 0.03 10^3/uL (0.0-0.2); Absolute Eosinophil Count 0.12 10^3/uL (0.0-0.7); Absolute Lymphocyte Count 0.67 10^3/uL (1.2-3.4); Absolute Monocyte Count 0.45 10^3/uL (0.1-0.8); Absolute Neutrophil Count 3.76 10^3/uL (1.2-6.7); Basophils % 0.6; Eosinophils % 2.4; HCT 44.7 % (40.0-50.0); HGB 15.3 g/dL (13.5-17.5); Immature Grans % 0.4; Lymphocytes % 13.3; MCH 30.4 pg (27.0-33.0); MCHC 34.2 % (32.0-36.0); MCV 89 fL (80-95); MPV 10.3 fL (8.0-11.0); Monocytes % 8.9; Neutrophils % 74.4; Platelet Count 183 10^3/uL (130-400); RBC 5.04 10^6/uL (4.36-5.78); RDW 13.6 % (11.8-14.1); RDW-SD 44.4 fL; WBC 5.05 10^3/uL (4.4-10.8)
[2023-07-22 12:44] LABS: ALT 26 U/L (16-63); AST 23 U/L (15-37); Albumin 4.1 g/dL (3.4-5.0); Alkaline Phosphatase 92 U/L (46-116); Anion Gap 9.8 mmol/L (3-11); BUN 18 mg/dL (7-18); Bilirubin, Total 0.6 mg/dL (0.2-1.0); CO2 27.2 mmol/L (21.0-32.0); CREATININE 1.1 mg/dL (0.70-1.30); Calcium 9.4 mg/dL (8.5-10.1); Chloride 105 mmol/L (98-107); Estimated GFR 81.28 (mL/min/1.73m2); Glucose 107 mg/dL (74-106); Potassium 3.8 mmol/L (3.5-5.1); Sodium 142 mmol/L (136-145); Total Protein 7.3 g/dL (6.4-8.2)
== END 2023-07-22 03:29 | disposition home or self-care (01) ==
PROVIDERS: PCP Nurse Practitioner Family; Visit Provider Student in an Organized Health Care Education/Training Program
DX: K75.4 Autoimmune hepatitis (principal)
CPT/HCPCS: 36415; 80053; 85025

== ENCOUNTER 2023-11-12 05:04 | Outpatient (CLI) | payer BC, SELFPAY ==
[2023-11-12 12:17] LABS: Abs Immature Grans 0.02 10^3/uL (0.0-0.06); Absolute Basophil Count 0.03 10^3/uL (0.0-0.2); Absolute Eosinophil Count 0.13 10^3/uL (0.0-0.7); Absolute Lymphocyte Count 0.71 10^3/uL (1.2-3.4); Absolute Monocyte Count 0.54 10^3/uL (0.1-0.8); Absolute Neutrophil Count 4.04 10^3/uL (1.2-6.7); Basophils % 0.5; Eosinophils % 2.4; HCT 44.9 % (40.0-50.0); HGB 15.7 g/dL (13.5-17.5); Immature Grans % 0.4; MCV 89 fL (80-95); Monocytes % 9.9; Neutrophils % 73.8; Platelet Count 182 10^3/uL (130-400); RBC 5.07 10^6/uL (4.36-5.78); RDW-SD 45.1 fL; WBC 5.47 10^3/uL (4.4-10.8)
[2023-11-12 12:31] LABS: ALT 20 U/L (16-63); AST 18 U/L (15-37); Albumin 3.9 g/dL (3.4-5.0); Alkaline Phosphatase 90 U/L (46-116); BUN 24 mg/dL (7-18); Bilirubin, Total 0.8 mg/dL (0.2-1.0); CREATININE 1.2 mg/dL (0.70-1.30); Calcium 9.5 mg/dL (8.5-10.1); Chloride 103 mmol/L (98-107); Estimated GFR 72.76 (mL/min/1.73m2); Glucose 118 mg/dL (74-106); Potassium 4.2 mmol/L (3.5-5.1); Sodium 142 mmol/L (136-145); Total Protein 7.3 g/dL (6.4-8.2)
== END 2023-11-12 05:05 | disposition home or self-care (01) ==
LOC: LOS 05:05
PROVIDERS: PCP Nurse Practitioner Family; Visit Provider Student in an Organized Health Care Education/Training Program
DX: K75.4 Autoimmune hepatitis (principal)
CPT/HCPCS: 36415; 80053; 85025; 85610

== ENCOUNTER 2024-04-22 02:33 | Outpatient (CLI) | payer BC, SELFPAY ==
[2024-04-22 13:36] LABS: ALT 41 U/L (16-63); AST 18 U/L (15-37); Alkaline Phosphatase 104 U/L (46-116); BUN 19 mg/dL (7-18); Bilirubin, Total 0.68 mg/dL (0.2-1.0); Calcium 9.4 mg/dL (8.5-10.1); Chloride 102 mmol/L (98-107); Estimated GFR 90.56 (mL/min/1.73m2); Glucose 133 mg/dL (74-106); Potassium 3.2 mmol/L (3.5-5.1); Sodium 141 mmol/L (136-145); Total Protein 7.3 g/dL (6.4-8.2)
== END 2024-04-22 02:34 | disposition home or self-care (01) ==
LOC: LOS 02:33
PROVIDERS: PCP Nurse Practitioner Family; Visit Provider Student in an Organized Health Care Education/Training Program
DX: M25.541 Pain in joints of right hand (principal); M25.542 Pain in joints of left hand; K75.4 Autoimmune hepatitis
CPT/HCPCS: 36415; 80053

== ENCOUNTER 2024-06-02 02:36 | Outpatient (CLI) | payer BC, SELFPAY ==
[2024-06-02 13:10] LABS: ALT 45 U/L (16-63); AST 28 U/L (15-37); Albumin 4.1 g/dL (3.4-5.0); Alkaline Phosphatase 90 U/L (46-116); Anion Gap 9.6 mmol/L (3-11); BUN 17 mg/dL (7-18); Bilirubin, Total 1.03 mg/dL (0.2-1.0); CO2 27.4 mmol/L (21.0-32.0); CREATININE 1.1 mg/dL (0.70-1.30); Calcium 9.5 mg/dL (8.5-10.1); Chloride 103 mmol/L (98-107); Estimated GFR 80.77 (mL/min/1.73m2); Glucose 112 mg/dL (74-106); Potassium 4.6 mmol/L (3.5-5.1); Sodium 140 mmol/L (136-145); Total Protein 7.4 g/dL (6.4-8.2)
== END 2024-06-02 02:37 | disposition home or self-care (01) ==
PROVIDERS: PCP Nurse Practitioner Family; Referring Provider Student in an Organized Health Care Education/Training Program; Visit Provider Student in an Organized Health Care Education/Training Program
DX: K75.4 Autoimmune hepatitis (principal); M25.541 Pain in joints of right hand; M25.542 Pain in joints of left hand
CPT/HCPCS: 36415; 80053

== ENCOUNTER 2024-08-13 08:26 | Outpatient (CLI) | payer BC, SELFPAY ==
[2024-08-13 13:03] LABS: Calculated LDL 64 mg/dL (<100); Cholesterol 140 mg/dL (<200); HDL Cholesterol 41 mg/dL (40-60); Triglyceride 177 mg/dL (<150)
== END 2024-08-13 08:27 | disposition home or self-care (01) ==
LOC: LOS 08:27
PROVIDERS: PCP Nurse Practitioner Family; Visit Provider Nurse Practitioner Family
DX: Z13.220 Encounter for screening for lipoid disorders (principal)
CPT/HCPCS: 36415; 80061

== ENCOUNTER 2024-12-02 04:31 | Outpatient (CLI) | payer BC, SELFPAY ==
[2024-12-02 12:45] LABS: Abs Immature Grans 0.01 10^3/uL (0.0-0.06); Absolute Basophil Count 0.02 10^3/uL (0.0-0.2); Absolute Eosinophil Count 0.14 10^3/uL (0.0-0.7); Absolute Lymphocyte Count 0.91 10^3/uL (1.2-3.4); Absolute Monocyte Count 0.46 10^3/uL (0.1-0.8); Absolute Neutrophil Count 3.59 10^3/uL (1.2-6.7); Basophils % 0.4 %; Eosinophils % 2.7 %; HGB 15.9 g/dL (13.5-17.5); Immature Grans % 0.2 %; Lymphocytes % 17.7 %; MCH 30.3 pg (27.0-33.0); MCHC 33.8 % (32.0-36.0); MCV 90 fL (80-95); MPV 9.9 fL (8.0-11.0); Platelet Count 169 10^3/uL (130-400); RBC 5.25 10^6/uL (4.36-5.78); RDW 13.1 % (11.8-14.1); RDW-SD 43.5 fL; WBC 5.13 10^3/uL (4.4-10.8)
[2024-12-02 13:32] LABS: ALT 36 U/L (16-63); AST 23 U/L (15-37); Albumin 4.1 g/dL (3.4-5.0); Alkaline Phosphatase 99 U/L (46-116); Anion Gap 6.5 mmol/L (3-11); BUN 29 mg/dL (7-18); Bilirubin, Total 0.6 mg/dL (0.2-1.0); CO2 29.5 mmol/L (21.0-32.0); CREATININE 1.2 mg/dL (0.70-1.30); Calcium 9.5 mg/dL (8.5-10.1); Chloride 106 mmol/L (98-107); Estimated GFR 72.31 (mL/min/1.73m2); Glucose 117 mg/dL (74-106); Potassium 4.2 mmol/L (3.5-5.1); Sodium 142 mmol/L (136-145); Total Protein 7.4 g/dL (6.4-8.2)
== END 2024-12-02 04:32 | disposition home or self-care (01) ==
LOC: LOS 04:31
PROVIDERS: PCP Nurse Practitioner Family; Visit Provider Student in an Organized Health Care Education/Training Program
DX: K75.4 Autoimmune hepatitis (principal)
CPT/HCPCS: 36415; 80053; 85025

== ENCOUNTER 2025-02-04 01:39 | Outpatient (CLI) | payer BC, SELFPAY ==
[2025-02-04 11:27] LABS: Abs Immature Grans 0.01 10^3/uL (0.0-0.06); Absolute Basophil Count 0.01 10^3/uL (0.0-0.2); Absolute Eosinophil Count 0.08 10^3/uL (0.0-0.7); Absolute Lymphocyte Count 0.88 10^3/uL (1.2-3.4); Absolute Monocyte Count 0.51 10^3/uL (0.1-0.8); Absolute Neutrophil Count 3.85 10^3/uL (1.2-6.7); Basophils % 0.2 %; Eosinophils % 1.5 %; HCT 45.8 % (40.0-50.0); HGB 16.1 g/dL (13.5-17.5); Immature Grans % 0.2 %; Lymphocytes % 16.5 %; MCHC 35.2 % (32.0-36.0); MCV 85 fL (80-95); MPV 9.3 fL (8.0-11.0); Monocytes % 9.6 %; Platelet Count 167 10^3/uL (130-400); RBC 5.36 10^6/uL (4.36-5.78); RDW 12.8 % (11.8-14.1); RDW-SD 39.6 fL; WBC 5.34 10^3/uL (4.4-10.8)
[2025-02-04 11:50] LABS: ALT 26 U/L (16-63); AST 21 U/L (15-37); Albumin 3.9 g/dL (3.4-5.0); Alkaline Phosphatase 95 U/L (46-116); Anion Gap 9.4 mmol/L (3-11); BUN 29 mg/dL (7-18); Bilirubin, Total 0.8 mg/dL (0.2-1.0); CO2 24.6 mmol/L (21.0-32.0); CREATININE 1.1 mg/dL (0.70-1.30); Calcium 9.4 mg/dL (8.5-10.1); Chloride 106 mmol/L (98-107); Estimated GFR 80.27 (mL/min/1.73m2); Glucose 98 mg/dL (74-106); Potassium 3.8 mmol/L (3.5-5.1); Sodium 140 mmol/L (136-145); Total Protein 7.3 g/dL (6.4-8.2)
== END 2025-02-04 01:40 | disposition home or self-care (01) ==
PROVIDERS: PCP Nurse Practitioner Family; Visit Provider Student in an Organized Health Care Education/Training Program
DX: K75.4 Autoimmune hepatitis (principal)
CPT/HCPCS: 36415; 80053; 85025

== ENCOUNTER 2025-04-28 14:45 | Outpatient (CLI) | payer BC, SELFPAY ==
--- NOTE | 2025-04-28 14:00 | DI.MRI_ITS ---
Exam(s) MR LUMBAR SPINE WO EXAM: MR LUMBAR SPINE WO CLINICAL HISTORY: back pain, DORSALGIA M54.9. TECHNIQUE: Multiplanar multisequence MRI of the Lumbar spine was performed. COMPARISON: CT CT ABDOMEN W from 12/08/2021. There are no plain films of the lumbar spine available time this MRI interpretation. FINDINGS: Five lumbar vertebrae are presumed. Conus medullaris is at the L1 level. There is no evidence of conus mass nor subjacent clumping of intrathecal nerve roots to suggest arachnoiditis. The distal thecal sac appears unremarkable.There is no evidence of Tarlov intrasacral cysts nor other significant findings within the sacral canal Bones:There are no fractures nor ominous osseous lesions in the lumbar vertebral bodies and visualized sacrum. With respect to the individual levels... T11-T12: Normal disc height and signal. Mild annular bulging. No significant disc herniation. No central canal stenosis. No foraminal stenosis. No facet arthropathy. T12-L1: Unremarkable L1-2: Normal disc height and signal. No disc herniation nor central canal stenosis.No foraminal stenosis. No significant facet arthropathy. L2-3: Normal disc height. No disc herniation nor central canal stenosis.No foraminal stenosis.No facet arthropathy. L3-4: Normal disc height. There is a small tear in the lateral left side of the annulus at the level of the exiting neural foramen. There is no prominent disc herniation at this level nor significant foraminal stenosis at this time. No central canal stenosis.No foraminal stenosis on the opposite-right side. No significant facet arthropathy. L4-5: Normal disc height. There is posterior central subligamentous annular bulging without a prominent disc herniation. Central canal dimensions are lower normal. There is increased signal within the synovial cavities of both facet joints, without prominent degenerative changes. There is also no evidence of degenerative synovial cyst at this level. No abnormal epidural collections. L5-S1: Normal disc height. Mild annular bulging without a significant disc herniation. No central canal stenosis. Facet joints unremarkable. On the sagittal images there is mild foraminal stenosis on the left side. No foraminal stenosis on the right side. Soft tissues: paraspinal soft tissues appear unremarkable.Small sub cm cyst in the left kidney incidentally noted. Does not require further investigation. IMPRESSION: 1. Mild findings as described per individual level above. 2. There is a small tear in the lateral left side of the annulus at the L3-4 level at the level of the exiting left neural foramen but there is no true disc herniation at this level at this time and no significant foraminal stenosis. 3. At L4-5 level there is symmetrical increased signal within both facet joints. No masses and no erosions and no associated degenerative synovial cysts. Central canal dimensions are within normal limits at this level. Mild left-sided foraminal stenosis at L5-S1 level noted. DATA REPOSITORY:
== END 2025-04-28 15:05 ==
LOC: DI 14:55
PROVIDERS: PCP Nurse Practitioner Family; Visit Provider Physician Assistant
DX: M51.A4 Intervertebral annulus fibrosus defect, small, lumbosacral region (principal)
CPT/HCPCS: 72148